=== PATIENT | male | born 1940 | race Caucasian/White ===

== ENCOUNTER 2024-03-27 07:18 | Outpatient (CLI) | payer MEDICARE, SELFPAY ==
--- NOTE | ~2024-03-27 | PE_ITS ---
EXAMINATION: PET_PETPSMAST_PT DATE: 03/27/2024 10:03 INDICATION: Prostate cancer TECHNIQUE: 5.057 mCi of Illucix Ga-[id number]) was administered i.v. Low dose computed tresa graphy (CT) images were acquired from the base of the brain to the base of the brain to the proximal thighs for attenuation correction and anatomic localization. Positron emission tomography (PET) image s were acquired in the same distribution beginning 99 minutes after injection. Images including fused PET/CT images were reconstructed in axial, coronal, and sagittal planes. Automated exposure control technique was employed. The dose-length product was 1135.88mGy-cm. COMPARISON: None FINDINGS: Head/neck: Typical pattern of symmetric physiologic increased activity in the lacrimal, parotid and submandibula r glands as well as along the mucosa of the nasal and oral cavities, pharynx and hypopharynx. No path ologically enlarged cervical lymphadenopathy or suspicious foci of increased uptake in the visualized head or neck. Chest: Mild emphysema with biapical pleural-parenchymal scarring. Tubular likely mucous impacted bronchus at the right apex. There are few scattered calcified and noncalcified bilateral pulmonary nodules inclu ding a 7 mm noncalcified right middle lobe nodule which are without evident PSV may uptake. Mild depe ndent and basilar atelectasis. No pneumonia, pulmonary edema or pleural effusion. Cardiomegaly. Posto perative change of prior mediastinal and aortic valve repair. Likely mitral clip. Dual-lead cardiac p acemaker with tips at the right atrial appendage and near the apex of the right ventricle. Thoracic a сергей is normal in caliber. No pathologically enlarged or PSMA avid thoracic lymphadenopathy. Abdomen/pelvis/proximal thighs: Physiologic renal accumulation and excretion of activity in the kidneys, bladder and along portions o f ureters. Status post prostatectomy for reported prostate cancer with no evident locally recurrent d isease. A few indeterminate small geographic regions of decreased parenchymal activity at both kidney s without radiologic correlate on CT. Normal degree and slightly heterogenous pattern of increased up take throughout the liver and spleen without radiologic correlate or dominant PSMA avid lesion. Depen dent density which could represent sludge or gallstones layering in the posterior aspect of the other capps normal gallbladder with no wall thickening or para cholecystic from trace stranding to suggest a cute cholecystitis. The pancreas and bilateral adrenal glands are normal. Moderate uptake scattered t hroughout the bowels with typical duodenal and proximal jejunal predominance and without radiologic c orrelate, also likely physiologic. There is moderate colonic diverticulosis with a sigmoid predominan ce. There is no adjacent inflammatory change to suggest diverticulitis. Small bowel and appendix are normal. Bladder is decompressed. Small fat-containing left inguinal hernia. Likely vasectomy clips al xander the bilateral spermatic cords. No free intraperitoneal gas or fluid. There are multiple normal-sized mildly enlarged PSV may avid retroperitoneal lymph nodes in the abdom en and pelvis. Correlate with menstrual in the right internal iliac chain with a small this may avid lymph node with larger and more intensely is some avid right external iliac and aortocaval and left p panchito-aortic lymph nodes extending cephalad to just below level of the renal arteries. For reference a 1.5 x 1.3 cm aortocaval lymph node demonstrates maximal SUV of 52.3, left perinephric lymph nodes alessandro suring 1.4 x 0.9 cm with maximal SUV of 48 and aortocaval lymph node in the aortic bifurcation measur ing 1.7 x 1.2 cm with maximal SUV of 44. Musculoskeletal: Moderate to severe scattered degenerative skeletal changes in the spine and pelvis. No suspicious lyt ic, blastic or PSV of the bone lesions. IMPRESSION: 1. Several normal s
== END 2024-03-27 07:19 | disposition home or self-care (01) ==
LOC: ANHIMG 07:25
PROVIDERS: PCP Family Medicine; Visit Provider Urology
DX: R97.21 Rising PSA following treatment for malignant neoplasm of prostate (principal)
CPT/HCPCS: 78815; A9596